=== PATIENT | female | born 1960 | race Caucasian/White ===

== ENCOUNTER 2017-03-09 12:05 | Emergency (ER) | payer OTHER ==
[2017-03-09 12:36] VITALS: BP 118/70; PULSE 75; TEMP 98.6; BMI 25.0
--- NOTE | 2017-03-09 13:00 | PDOC ---
History of Present Illness - General Chief Complaint: Pain Stated Complaint: BACK, CALF, & R ARM PAIN Time Seen by Provider: 03/09/17 12:36 History Source: Patient Exam Limitations: No Limitations - History of Present Illness Initial Comments: 56 yo F history ulcerative colitis presents with diffuse body aches x1 week. Pain started with R knee, which has been "giving out". Now with wrist pain, upper arm pain, and back pain. She states she has history of R knee injury ( uncertain of specifics, but from history it may be meniscal tear), but it has been worse recently. She has had cortisone shots in the past for similar symptoms with improvement and she has an ortho appointment later this week. However, now she notes that she is having discomfort in multiple muscles. She states that when she uses arms or legs, she notes that she feels fatigued much faster than usual. She compares symptoms to "lactic acid burn" sensation that she gets in the gym sometimes. No recent leg swelling, cp, SOB, fever. 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 No change in urine color. Past History - Past Medical History Allergies/Adverse Reactions: Allergies Allergy/AdvReac Type Severity Reaction Status Date / Time No Known Allergies Allergy Verified 03/09/17 12:20 Home Medications: Ambulatory Orders NK [No Known Home Medication] 03/09/17 COPD: No GI Disorders: Yes (ULCERATIVE COLITIS, REMISSION) Other medical history: RIGHT KNEE - Immunization History Immunization Up to Date: Yes - Suicide/Smoking/Psychosocial Hx Smoking Status: No Smoking History: Never smoked Number of Cigarettes Smoked Daily: 0 Hx Alcohol Use: No Drug/Substance Use Hx: No Substance Use Type: None Review of Systems - Review of Systems Able to Perform ROS?: Yes Comments:: GENERAL/CONSTITUTIONAL: No fever or chills. No weakness. HEAD, EYES, EARS, NOSE AND THROAT: No change in vision. No ear pain or discharge. No sore throat. CARDIOVASCULAR: No chest pain or shortness of breath. RESPIRATORY: No cough, wheezing, or hemoptysis. GASTROINTESTINAL: No nausea, vomiting, diarrhea or constipation. GENITOURINARY: No dysuria, frequency, or change in urination. MUSCULOSKELETAL: No joint or muscle swelling. +Muscle aches diffusely. +R knee discomfort. No neck or back pain. SKIN: No rash NEUROLOGIC: No headache, vertigo, loss of consciousness, or change in strength/ sensation. ENDOCRINE: No increased thirst. No abnormal weight change. HEMATOLOGIC/LYMPHATIC: No anemia, easy bleeding, or history of blood clots. ALLERGIC/IMMUNOLOGIC: No hives or skin allergy. *Physical Exam - Vital Signs Last Vital Signs Temp Pulse Resp BP Pulse Ox 98.6 F 75 15 118/70 100 03/09/17 12:18 03/09/17 12:18 03/09/17 12:18 03/09/17 12:18 03/09/17 12:18 - Physical Exam Comments: GENERAL: Awake, alert, and fully oriented, in no acute distress HEAD: No signs of trauma EYES: PERRLA, EOMI, sclera anicteric, conjunctiva clear ENT: Auricles normal inspection, hearing grossly normal, nares patent, oropharynx clear without exudates. Moist mucosa NECK: Normal ROM, supple, no lymphadenopathy, JVD, or masses LUNGS: Breath sounds equal, clear to auscultation bilaterally. No wheezes, and no crackles HEART: Regular rate and rhythm, normal S1 and S2, no murmurs, rubs or gallops ABDOMEN: Soft, nontender, normoactive bowel sounds. No guarding, no rebound. No masses EXTREMITIES: R knee- pain elicited on stress of MCL, medial meniscus. No crepitus, no effusion. +Slight MCL laxity. Remainder of extremities with normal range of motion, no edema. No clubbing or cyanosis. No cords, erythema, or tenderness. No calf tenderness. NEUROLOGICAL: Cranial nerves II through XII grossly intact. Normal speech, normal gait SKIN: Warm, Dry, normal turgor, no rashes or lesions noted. ED Treatment Course - LABORATORY CBC & Chemistry Diagram: 03/09/17 13:15 03/09/17 13:15 Medical Decision Making - Medical Decision Making 03/09/17 14:07 Labs wnl including CPK. No signs of DVT on exam. Stable for DC home with outpatient f/u. *DC/Admit/Observation/Transfer Diagnosis at time of Disposition: Muscle ache - Discharge Dispostion Disposition: HOME Condition at time of disposition: Stable Admit: No - Referrals Referrals: Mary Farrell MD [Primary Care Provider] - - Patient Instructions Printed Discharge Instructions: DI for Knee Pain - Post Discharge Activity
[2017-03-09 13:41] LABS: RBC 4.68 M/mm3 (3.60-5.2); WHITE BLOOD COUNT 3.3 K/mm3 (4.0-10.8)
[2017-03-09 13:42] LABS: BASO % 1.7 % (0-2.0); EOS % 1.5 % (0-4.5); HEMATOCRIT 41.2 % (32.4-45.2); HEMOGLOBIN 13.6 GM/dl (10.7-15.3); LYMPH % 33.1 % (8-40); MCHC 32.9 g/dl (32.0-36.0); MEAN CELL VOLUME 88.2 fl (80-96); MONO % 12.9 % (3.8-10.2); NEUT % 50.8 % (42.8-82.8); PLATELET COUNT 171 K/MM3 (134-434); RDW 13.6 % (11.6-15.6)
[2017-03-09 14:01] LABS: BLOOD UREA NITROGEN 8 mg/dl (7-18); GLUCOSE,RANDOM 77 mg/dl (74-106)
[2017-03-09 14:02] LABS: ALBUMIN 4.5 g/dl (3.5-5.0); ALK PHOS 39 U/L (32-92); ANION GAP 8 (8-16); BILIRUBIN,TOTAL 0.7 mg/dl (0.2-1.0); CALCIUM 9.3 mg/dl (8.4-10.2); CHLORIDE 103 mmol/L (98-107); CO2 26 mmol/L (22-28); CREATININE 0.7 mg/dl (0.6-1.3); POTASSIUM 3.8 mmol/L (3.5-5.1); SGOT/AST 25 U/L (10-42); SGPT/ALT 20 U/L (10-40); SODIUM 137 mmol/L (136-145); TOT PROT 7.3 g/dl (6.4-8.3)
== END 2017-03-09 14:12 | disposition home or self-care (01) ==
LOC: FER 12:05
DX: M79.1 Myalgia (principal); K51.90 Ulcerative colitis, unspecified, without complications
CPT/HCPCS: 36415; 80053; 82550; 85025; 99282-25

== ENCOUNTER 2017-08-12 17:57 | Emergency (ER) | payer OTHER ==
[2017-08-12 18:06] VITALS: BP 148/72; PULSE 80; TEMP 98.5; BMI 24.6
--- NOTE | 2017-08-12 19:24 | PDOC ---
History of Present Illness - General History Source: Patient Exam Limitations: No Limitations - History of Present Illness Initial Comments: 08/12/17 19:27 The patient is a 57 year old female who presents to the emergency department for evaluation of left sided rib pain. The patient reports slipping and landing on her left side earlier today. The patient reports moderate left rib pain with no radiation. She describes the pain as intermittent and exacerbated with deep inspiration. The patient denies head trauma or loss of consciousness. The patient denies chest pain, shortness of breath, headache, and dizziness. Denies fevers, chills, nausea, vomiting, diarrhea, and constipation. Denies any other kinds of injury. PAST MEDICAL HISTORY: Ulcerative Colitis in remission. PAST SURGICAL HISTORY: (2x) FAMILY HISTORY: no pertinent history SOCIAL HISTORY: Pt lives with family and is employed. MEDICATIONS: reviewed ALLERGIES: As per nursing notes Review of Systems General: No fevers or chills, no weakness, no weight loss HEENT: No change in vision. No sore throat,. No ear pain Cardiovascular: No chest pain or shortness of breath Respiratory:No cough, or wheezing. Gastrointestinal: no nausea, vomiting, diarrhea or constipation, No rectal bleeding Genitourinary: No dysuria, hematuria, or frequency Musculoskeletal: (+)Left sided rib pain. No joint pain or swelling Neurologic: No headache, vertigo, dizziness or loss of consciousness Psychiatric: nor depression Skin: No rashes or easy bruising Endocrine: no increased thirst or abnormal weight change Allergic: no skin or latex allergy All other systems reviewed and normal Physical Exam General: Well-nourished well-developed individual, no acute distress HEENT: Throat: Normal, tonsils normal, no erythema or exudate Neck: Supple. Eyes:Pupils equal reactive and round, extraocular motion intact Chest: Nontender to palpation Cardiac: S1-S2 normal, regular rate and rhythm, no murmurs rubs or gallops Respiratory: Lungs clear to auscultation bilateral Extremities: Warm, dry, no cyanosis, clubbing, or edema Skin: No rashes Neuro: Alert and oriented x3, nonfocal exam, grossly intact Psych: Normal mood and affect <Giovani Suarez - Last Filed: 08/12/17 19:30> - General History Source: Patient Exam Limitations: No Limitations - History of Present Illness Initial Comments: A portion of this note was documented by scribe services under my direction. I have reviewed the details of the note, within reason, and agree with the documentation. The case summary and management plan written by me. Assessment and plan: This is a 57-year-old female who comes in status post fall onto her left side. Patient did not hit her head did not pass out and is complaining of left sided chest wall pain left thumb pain and left elbow pain. Patient's chest wall is only uncomfortable when she moves takes deep breath or uses the muscles. Otherwise her is no discomfort. Patient has no bony tenderness of her left elbow or thumb. However there is a small contusion of the elbow and thumb. Patient was advised to take ibuprofen and follow-up with her doctor if not improved within 3-4 days. 08/12/17 19:50 <Helga Corcoran I - Last Filed: 08/12/17 19:53> - General Chief Complaint: Injury Stated Complaint: LEFT RIB PAIN LEFT ARM ABRASIONS Time Seen by Provider: 08/12/17 19:15 Past History <Giovani Suarez - Last Filed: 08/12/17 19:30> - Past Medical History COPD: No GI Disorders: Yes (ULCERATIVE COLITIS, REMISSION) - Immunization History Immunization Up to Date: Yes - Suicide/Smoking/Psychosocial Hx Smoking Status: No Smoking History: Never smoked Number of Cigarettes Smoked Daily: 0 Information on smoking cessation initiated: No Hx Alcohol Use: No Drug/Substance Use Hx: No Substance Use Type: Alcohol <Helga Corcoran I - Last Filed: 08/12/17 19:53> - Past Medical History Allergies/Adverse Reactions: Allergies Allergy/AdvReac Type Severity Reaction Status Date / Time No Known Allergies Allergy Verified 08/12/17 17:59 Home Medications: Ambulatory Orders NK [No Known Home Medication] 08/12/17 *Physical Exam - Vital Signs Last Vital Signs Temp Pulse Resp BP Pulse Ox 98.5 F 80 16 148/72 100 08/12/17 17:58 08/12/17 17:58 08/12/17 17:58 08/12/17 17:58 08/12/17 17:58 <Giovani Suarez - Last Filed: 08/12/17 19:30> - Vital Signs Last Vital Signs Temp Pulse Resp BP Pulse Ox 98.5 F 80 16 148/72 100 08/12/17 17:58 08/12/17 17:58 08/12/17 17:58 08/12/17 17:58 08/12/17 17:58 <Helga Corcoran I - Last Filed: 08/12/17 19:53> *DC/Admit/Observation/Transfer - Attestations Scribe Attestion: Documentation prepared by Giovani Suarez, acting as emergency medical technician basic for Helga Corcoran MD. <Giovani Suarez - Last Filed: 08/12/17 19:30> <Helga Corcoran I - Last Filed: 08/12/17 19:53> Diagnosis at time of Disposition: Chest wall muscle strain Qualifiers: Encounter type: initial encounter Qualified Code(s): S29.011A - Strain of muscle and tendon of front wall of thorax, initial encounter Contusion of left thumb Qualifiers: Encounter type: initial encounter Damage to nail status: without damage Qualified Code(s): S60.012A - Contusion of left thumb without damage to nail, initial encounter Contusion of left elbow Qualifiers: Encounter type: initial encounter Qualified Code(s): S50.02XA - Contusion of left elbow, initial encounter - Discharge Dispostion Disposition: HOME Condition at time of disposition: Stable - Patient Instructions Additional Instructions: Take ibuprofen 2 tablets 3 times a day with food for the next 3-4 days. Do not be concerned if you develop additional areas of discomfort over the next couple a days. This is normal after a fall. The discomfort just start to get better after about 48 hours however it is important that you take the ibuprofen for at least 3-4 days. Return to the emergency department immediately with ANY new, persistent or worsening symptoms. Continue any medications as previously prescribed by your physician. You should follow up with your primary doctor as soon as possible regarding today's emergency department visit. . Please make sure your doctor reviews the results of your emergency evaluation. Thank you for coming to the Emergency Department today for your care. It was a pleasure to see you today. Please note that your evaluation is INCOMPLETE until you follow-up with your doctor.
== END 2017-08-12 19:33 | disposition home or self-care (01) ==
LOC: FER 17:57
DX: S29.011A Strain of muscle and tendon of front wall of thorax, initial encounter (principal); S60.012A Contusion of left thumb without damage to nail, initial encounter; S50.02XA Contusion of left elbow, initial encounter; W18.39XA Other fall on same level, initial encounter; Y93.89 Activity, other specified; Y92.9 Unspecified place or not applicable
CPT/HCPCS: 99281-25

== ENCOUNTER 2020-09-28 05:00 | Day surgery (SDC) | payer OTHER ==
[2020-09-26 14:35] VITALS: BMI 24.2
[2020-09-28 10:50] VITALS: BP 107/88; PULSE 88; TEMP 98.1
== END 2020-09-28 11:08 | disposition home or self-care (01) ==
LOC: JASU-ENDO 05:00
PROVIDERS: ATTEND Internal Medicine Gastroenterology
PROC: 0DBL8ZX Excision of Transverse Colon, Via Natural or Artificial Opening Endoscopic, Diagnostic (ICD-10-PCS; 2020-09-28)
PROC: 0DBN8ZX Excision of Sigmoid Colon, Via Natural or Artificial Opening Endoscopic, Diagnostic (ICD-10-PCS; 2020-09-28)
PROC: 0DBP8ZX Excision of Rectum, Via Natural or Artificial Opening Endoscopic, Diagnostic (ICD-10-PCS; 2020-09-28)
PROC: 0DBM8ZX Excision of Descending Colon, Via Natural or Artificial Opening Endoscopic, Diagnostic (ICD-10-PCS; 2020-09-28)
PROC: 0DBH8ZX Excision of Cecum, Via Natural or Artificial Opening Endoscopic, Diagnostic (ICD-10-PCS; 2020-09-28)
PROC: 0DBK8ZX Excision of Ascending Colon, Via Natural or Artificial Opening Endoscopic, Diagnostic (ICD-10-PCS; principal; 2020-09-28 09:00)
DX: Z12.11 Encounter for screening for malignant neoplasm of colon (principal); K51.00 Ulcerative (chronic) pancolitis without complications; K64.8 Other hemorrhoids
CPT/HCPCS: 88305-TC

== ENCOUNTER 2021-08-01 09:10 | Emergency (ER) | payer OTHER ==
[2021-08-01 09:27] VITALS: BP 145/83; PULSE 104; TEMP 98.7; BMI 22.8
[2021-08-01 11:31] LABS: BASO % 3.4 % (0-2.0); EOS % 0.2 % (0-4.5); HEMOGLOBIN 15.2 GM/dL (10.7-15.3); LYMPH % 13.1 % (8-40); MCH 30.9 pg (25.7-33.7); MCHC 33.7 g/dl (32.0-36.0); MEAN CELL VOLUME 91.8 fl (80-96); MEAN PLT VOLUME 10.3 fl (7.5-11.1); MONO % 9.8 % (3.8-10.2); NEUT % 73.5 % (42.8-82.8); PLATELET COUNT 180 10^3/uL (134-434); WHITE BLOOD COUNT 4.4 K/mm3 (4.0-10.0)
[2021-08-01 11:35] LABS: BLOOD UREA NITROGEN 18.9 mg/dL (7-18); CALCIUM 9.4 mg/dL (8.5-10.1)
[2021-08-01 11:36] LABS: ALBUMIN 4.4 g/dl (3.4-5.0)
[2021-08-01 11:38] LABS: CREATININE 0.6 mg/dL (0.55-1.3)
[2021-08-01 11:40] LABS: BILIRUBIN,TOTAL 0.4 mg/dL (0.2-1); TOT PROT 7.7 g/dl (6.4-8.2)
== END 2021-08-01 11:48 | disposition home or self-care (01) ==
LOC: JERFT 09:10
DX: F41.9 Anxiety disorder, unspecified (principal); Z63.79 Other stressful life events affecting family and household
CPT/HCPCS: 36415; 80053; 85025; 99283-25

== ENCOUNTER 2022-12-07 12:42 | Emergency (ER) | payer OTHER ==
[2022-12-07 12:54] VITALS: BP 146/79; PULSE 93; RESP 18; TEMP 98.3; BMI 23.8
[2022-12-07] MEDS ORDERED: diazePAM CARPU-JECT 10 MG/2 ML DISP.SYRIN IVPUSH ONE (13:50)
[2022-12-07] MEDS ORDERED: diazePAM CARPU-JECT 10 MG/2 ML DISP.SYRIN ONE (14:04)
[2022-12-07 14:36] LABS: BASO % 1.2 % (0-2.0); EOS % 0.4 % (0-4.5); HEMATOCRIT 43.4 % (32.4-45.2); HEMOGLOBIN 14.6 GM/dL (10.7-15.3); LYMPH % 23.3 % (8-40); MCH 31.8 pg (25.7-33.7); MCHC 33.6 g/dl (32.0-36.0); MEAN CELL VOLUME 94.7 fl (80-96); MEAN PLT VOLUME 9.6 fl (7.5-11.1); MONO % 11.3 % (3.8-10.2); NEUT % 63.8 % (42.8-82.8); PLATELET COUNT 225 10^3/uL (134-434); RBC 4.59 M/mm3 (3.60-5.2); RDW 12.4 % (11.6-15.6); WHITE BLOOD COUNT 4.1 K/mm3 (4.0-10.0)
[2022-12-07 14:56] LABS: POTASSIUM 4.1 mmol/L (3.5-5.1)
[2022-12-07 14:58] LABS: CALCIUM 9.4 mg/dL (8.5-10.1)
[2022-12-07 14:59] LABS: ALBUMIN 4.2 g/dl (3.4-5.0); BLOOD UREA NITROGEN 11.2 mg/dL (7-18)
[2022-12-07 15:02] LABS: CREATININE 0.7 mg/dL (0.55-1.3)
[2022-12-07 15:04] LABS: BILIRUBIN,TOTAL 0.4 mg/dL (0.2-1); TOT PROT 7.8 g/dl (6.4-8.2)
[2022-12-07 15:14] LABS: URINE APPEARANCE CLEAR; URINE BILIRUBIN NEGATIVE (NEGATIVE); URINE COLOR YELLOW; URINE GLUCOSE (UA) NEGATIVE (NEGATIVE); URINE KETONE NEGATIVE (NEGATIVE); URINE LEUK ESTERASE NEGATIVE (NEGATIVE); URINE NITRITE NEGATIVE (NEGATIVE); URINE PROTEIN NEGATIVE (NEGATIVE); URINE UROBILINOGEN 0.2 mg/dL (0.2-1.0)
[2022-12-07 15:17] LABS: OPIATES, URI NEGATIVE (NEGATIVE); PHENCYCLIDINE,URINE NEGATIVE (NEGATIVE)
[2022-12-07 15:18] LABS: METHADONE, UR NEGATIVE (NEGATIVE)
[2022-12-07 15:21] LABS: COCAINE, UR NEGATIVE (NEGATIVE); URINE AMPHETAMINES NEGATIVE (NEGATIVE); URINE BARBITURATES NEGATIVE (NEGATIVE); URINE BENZODIAZEPINES NEGATIVE (NEGATIVE)
== END 2022-12-07 19:03 | disposition home or self-care (01) ==
LOC: JER 12:42
PROC: 3E033GC Introduction of Other Therapeutic Substance into Peripheral Vein, Percutaneous Approach (ICD-10-PCS; principal; 2022-12-07)
DX: G43.909 Migraine, unspecified, not intractable, without status migrainosus (principal); F41.9 Anxiety disorder, unspecified; R51.9 Headache, unspecified
CPT/HCPCS: 36415; 70450-TC; 80053; 80307; 81003; 85025; 93005; 93010; 99285-25

== ENCOUNTER 2023-09-04 04:49 | Day surgery (SDC) | payer OTHER ==
[2023-08-29 15:01] VITALS: BMI 23.4
[2023-09-04 12:49] VITALS: TEMP 97.5
[2023-09-04 13:16] VITALS: RESP 18
[2023-09-04 13:26] VITALS: BP 113/60; PULSE 71
== END 2023-09-04 13:20 | disposition home or self-care (01) ==
LOC: JASU-ENDO 04:49
PROVIDERS: ATTEND Internal Medicine Gastroenterology
PROC: 0DBN8ZX Excision of Sigmoid Colon, Via Natural or Artificial Opening Endoscopic, Diagnostic (ICD-10-PCS; principal; 2023-09-04 10:30)
DX: Z12.11 Encounter for screening for malignant neoplasm of colon (principal); K63.5 Polyp of colon; Z87.19 Personal history of other diseases of the digestive system
CPT/HCPCS: 88305-TC

== ENCOUNTER 2023-11-12 17:20 | Emergency (ER) | payer OTHER ==
[2023-11-12 17:26] VITALS: BP 137/75; PULSE 103; RESP 18; TEMP 98.5; BMI 23.6
[2023-11-12] MEDS ORDERED: CEPHALEXIN MONOHYDRATE 500 MG CAPSULE (UD) PO ONE (18:08)
[2023-11-12] MEDS ORDERED: DIPHTH,PERTUSS(ACELL),TET 0.5 ML DISP.SYRIN IM ONE (18:36)
[2023-11-12] MEDS ORDERED: DOXYCYCLINE HYCLATE 100 MG CAPSULE PO ONE (18:36)
[2023-11-12] MEDS: DIPHTH,PERTUSS(ACELL),TET 0.5 ML DISP.SYRIN IM ONE (18:45)
[2023-11-12] MEDS: DOXYCYCLINE HYCLATE 100 MG CAPSULE PO ONE (18:45)
== END 2023-11-12 18:49 | disposition home or self-care (01) ==
LOC: JERFT 17:20
DX: I89.1 Lymphangitis (principal)
CPT/HCPCS: 99283-25

== ENCOUNTER 2023-11-14 14:29 | Emergency (ER) | payer OTHER ==
[2023-11-14 14:40] VITALS: BP 118/70; PULSE 88; RESP 18; TEMP 98.6; BMI 23.6
[2023-11-14] MEDS ORDERED: BACITRACIN ZINC 15 GM TUBE TOPICAL OINTMENT ONE (15:01)
[2023-11-14] MEDS: BACITRACIN ZINC 15 GM TUBE TOPICAL OINTMENT TP ONE (15:12)
== END 2023-11-14 20:07 | disposition home or self-care (01) ==
LOC: JERFT 14:29
DX: S61.402A Unspecified open wound of left hand, initial encounter (principal); W26.8XXA Contact with other sharp object(s), not elsewhere classified, initial encounter
CPT/HCPCS: 99283-25

== ENCOUNTER 2023-11-22 09:13 | Emergency (ER) | payer OTHER ==
[2023-11-22 09:19] VITALS: BP 132/68; PULSE 77; RESP 16; TEMP 98.8; BMI 23.6
== END 2023-11-22 09:57 | disposition home or self-care (01) ==
LOC: JERFT 09:13
DX: F41.9 Anxiety disorder, unspecified (principal); Z00.00 Encounter for general adult medical examination without abnormal findings
CPT/HCPCS: 99282-25

== ENCOUNTER 2023-12-18 09:20 | Emergency (ER) | payer OTHER ==
[2023-12-18 09:29] VITALS: BP 139/86; PULSE 102; RESP 18; TEMP 98.2; BMI 23.6
[2023-12-18] MEDS ORDERED: DIPHTH,PERTUSS(ACELL),TET 0.5 ML DISP.SYRIN IM ONE (09:46)
[2023-12-18] MEDS: DIPHTH,PERTUSS(ACELL),TET 0.5 ML DISP.SYRIN IM ONE (09:53)
== END 2023-12-18 10:45 | disposition home or self-care (01) ==
LOC: JERFT 09:20
PROC: 3E0234Z Introduction of Serum, Toxoid and Vaccine into Muscle, Percutaneous Approach (ICD-10-PCS; principal; 2023-12-18)
DX: S81.851A Open bite, right lower leg, initial encounter (principal); W55.01XA Bitten by cat, initial encounter; Z23 Encounter for immunization
CPT/HCPCS: 90715; 99284-25